=== PATIENT | male | born 1975 | race Hispanic/Latino ===

== ENCOUNTER 2018-05-01 08:42 | Day surgery (SDC) | payer BC ==
[2018-05-01] MEDS ORDERED: ATROPINE IV NR (09:01)
[2018-05-01] MEDS ORDERED: LOPRESSOR IV PRN (09:01)
[2018-05-01] MEDS ORDERED: NITROSTAT SL NR (09:03)
[2018-05-01] MEDS ORDERED: LOPRESSOR ONE (09:15)
[2018-05-01 09:33] LABS: BUN/Creatinine Ratio 13; Blood Urea Nitrogen 13 mg/dL (9-20); Calcium 9.4 mg/dL (8.4-10.2); Hemolysis Index 17
[2018-05-01] MEDS ORDERED: LOPRESSOR PO SCH (10:00)
[2018-05-01 12:05] VITALS: BP 121/65
--- NOTE | 2018-05-01 12:27 | Cat Scan Report ---
LIMITED CT OF THE CHEST PER CT CORONARY ANGIOGRAPHY PROTOCOL: History: Chest pain. Limited CT of the chest per CT coronary angiography protocol is submitted. The cardiac portion of the exam has been previously interpreted by the [facility]. The included portions of the lungs appear clear without evidence for nodule, mass or infiltrate. The included pleural spaces are clear. No mediastinal or hilar adenopathy is evident. Included upper abdomen and solid abdominal organs are grossly within normal limits. IMPRESSION: Unremarkable limited CT of the chest as noted.
--- NOTE | 2018-05-03 22:40 | Procedure Note ---
A 64-SLICE CARDIAC CT INDICATION: Chest pain. ORDERING PHYSICIAN: Kristy Palumbo MD PROCEDURE: The patient received 0.4 mg of nitroglycerin sublingual for coronary vasodilation prior to scanning. Using 64 slice MDCT, low dose noncontrast calcium scoring CT was performed with prospective gating followed by contrast enhanced CTA at 0.6 mm thickness with retrospective gating and 100 mL Isovue 370 IV. This scan was performed from kaleb through the base of the heart. Data was reconstructed using multiple cardiac phases. FINDINGS: 1. The overall quality of the scan is good. 2. The total calcium score is 0 indicating the absence of calcified atherosclerotic plaque and a very low cardiovascular disease risk. 3. This is a right dominant circulation. 4. The left main originates from the left coronary cusp. 5. The left main has no evidence of obstructive disease. 6. The LAD has no evidence of obstructive disease. 7. The circumflex artery has no evidence of obstructive disease. 8. The right coronary artery originates from the right coronary cusp. 9. The right coronary artery has no evidence of obstructive disease. 10. Aorta, the sinus of Valsalva measures 33.7 x 34.9 mm. 11. The sinotubular junction measures 32.2 x 32.2 mm. 12. The ascending aorta measures 28.9 x 28.3 mm. 13. The descending thoracic aorta at the level of the diaphragm measures 22.1 x 21.5 mm. 14. The pulmonary artery, the main pulmonary artery measures 28.8 x 32 mm. 15. The right pulmonary artery measures 26.1 x 24.2 mm. 16. The left pulmonary artery measures 24.7 x 21.5 mm. 17. Pulmonary veins are normal with poor visualized entering the left atrium. 18. Atrial appendage has no evidence of filling defect. 19. The left ventricle is normal in size and systolic function with an ejection fraction measured at 51.6%. The end-diastolic volume was 121 mL with end systolic volume of 59 mL. 20. The pericardium shows no evidence of a pericardial effusion. Radiology overread of extracardiac structures. 21. No abnormalities detected. IMPRESSION: 1. Good quality scan. 2. Zero calcium score indicating the absence of calcified atherosclerotic plaque and a very low cardiovascular disease risk. 3. No evidence of obstructive coronary artery disease in this right dominant circulation. 4. Normal left ventricular size and systolic function with an ejection fraction measured at 51%. 5. The visualized segments of the aorta and pulmonary artery are within normal limits. JOB# [id number] BEV/LUIS M
== END 2018-05-01 11:34 | disposition home or self-care (01) ==
LOC: CATHLABREC 08:42 → EDSTATUS 09:45 → CATHLABREC 11:34
PROVIDERS: ATTEND Internal Medicine
DX: R07.9 Chest pain, unspecified (principal); R06.02 Shortness of breath
CPT/HCPCS: 36415; 75574; 80048; Q9967